=== PATIENT | female | born 1985 | race Caucasian/White ===

== ENCOUNTER 2016-10-19 18:21 | Emergency (ER) | payer MEDICAID ==
[2016-10-19 18:36] VITALS: BP 136/83
--- NOTE | 2016-10-19 18:57 | EDM.PDOC ---
ED HPI RENAL/ - General Chief Complaint: Genitourinary Problem Stated Complaint: POSSIBLE BLADDER INFECTION Time Seen by Provider: 10/19/16 18:50 Source: Reports: Patient History Limitations: Reports: No limitations - History of Present Illness INITIAL COMMENTS - FREE TEXT/NARRATIVE: 24 hr hx of decreased ability to urinate. States small amounts of urine produced with each void. Minimal pain. Low back pain, greater on left than right. No fever or chills. Last UTI was 'a few years ago.' No other concerns. Location: Reports: suprapubic Quality: Reports: ache Severity: mild Improves with: Reports: urinating Worsens with: Reports: urinating Context: Reports: other (recently completed menses. 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 - Past Surgical History HEENT Surgical History: Reports: Tonsillectomy Female Surgical History: Reports: section, Tubal ligation Social & Family History - Tobacco Use Smoking Status *Q: Never Smoker Second Hand Smoke Exposure: No - Recreational Drug Use Recreational Drug Use: No ED ROS GENERAL - Review of Systems Review Of Systems: See Below Constitutional: Reports: no symptoms GI/Abdominal: Reports: No symptoms : Reports: frequency, urgency, urinary retention Neurological: Reports: No Symptoms ED EXAM, RENAL/ - Physical Exam Exam: See Below Exam Limited By: No limitations General Appearance: alert, no apparent distress Respiratory/Chest: no respiratory distress Cardiovascular: regular rate, rhythm GI/Abdominal: soft (Female) Exam: Deferred Back Exam: other (low back pain to palpation). No: CVA tenderness (R), CVA tenderness (L) Extremities: normal range of motion Neurological: alert, oriented, normal cognition, normal gait Psychiatric: normal affect, normal mood Skin Exam: Warm, Dry Course - Vital Signs Last Recorded V/S: Last Vital Signs Temp 36.3 C 10/19/16 18:41 Pulse 90 10/19/16 18:41 Resp 14 10/19/16 18:41 BP 136/83 10/19/16 18:41 Pulse Ox 98 10/19/16 18:41 - Orders/Labs/Meds Orders: Active Orders 24 hr Category Date Time Status CULTURE URINE [RM] Stat Lab 10/19/16 19:00 Ordered Labs: Laboratory Tests 10/19/16 Range/Units 18:45 Urine Color Yellow Urine Appearance Cloudy Urine pH 6.0 (4.5-8.0) Ur Specific [place] 1.015 (1.008-1.030) Urine Protein 30 H (NEGATIVE) mg/dL Urine Glucose (UA) Normal (NEGATIVE) mg/dL Urine Ketones Negative (NEGATIVE) mg/dL Urine Occult Blood Large (NEGATIVE) Urine Nitrite Negative (NEGATIVE) Urine Bilirubin Negative (NEGATIVE) Urine Urobilinogen Normal (NORMAL) mg/dL Ur Leukocyte Esterase Moderate (NEGATIVE) Urine RBC 10-20 H (0-5) Urine WBC 50-75 H (0-5) Ur Epithelial Cells Few Urine Bacteria Many Urine Mucus Not seen Departure - Departure Time of Disposition: 19:02 Disposition: Home, Self-Care 01 Condition: good Clinical Impression: UTI, Urinary tract infectious disease Instructions: Urinary Tract Infection, Adult, [id number] Referrals: PCP,None [Primary Care Provider] - Forms: ED Department Discharge Additional Instructions: 1. Nitrofurantoin (antibiotic) 2 times per day for 7 days. 2. Increase your fluid intake, void often. 3. Followup as needed. - Problem List & Annotations (1) UTI, Urinary tract infectious disease SNOMED Code(s): 64747530 Code(s): N39.0 - URINARY TRACT INFECTION, SITE NOT SPECIFIED Status: Acute Current Visit: Yes - Problem List Review Problem List Initiated/Reviewed/Updated: Yes - My Orders Last 24 Hours: My Active Orders 10/19/16 19:00 CULTURE URINE [RM] Stat - Assessment/Plan Last 24 Hours: My Active Orders 10/19/16 19:00 CULTURE URINE [RM] Stat
== END 2016-10-19 19:12 | disposition home or self-care (01) ==
LOC: JP.ED 18:21
DX: N39.0 Urinary tract infection, site not specified (principal); Z79.899 Other long term (current) drug therapy
CPT/HCPCS: 81001; 87086; 87088; 87186; 99284

== ENCOUNTER 2016-12-22 22:07 | Emergency (ER) | payer MEDICAID ==
[2016-12-22] MEDS ORDERED: Sodium Chloride 0.9% 10 ML Syringe FLUSH PRN (23:11)
[2016-12-22] MEDS ORDERED: Ondansetron 4 MG/2 ML SDV IVPUSH ONE (23:12)
[2016-12-22] MEDS ORDERED: HYDROmorphone 1 MG/ML Syringe IVPUSH ONE (23:13)
[2016-12-22] MEDS ORDERED: Sodium Chloride 0.9% 80 ML IV STA (23:29)
[2016-12-22] MEDS ORDERED: Iopamidol 612 MG/ML 100 ML Bottle IV STA (23:29)
[2016-12-23] MEDS ORDERED: HYDROmorphone 1 MG/ML Syringe IVPUSH ONE (00:36)
[2016-12-23 00:37] VITALS: BP 113/61
[2016-12-23] MEDS ORDERED: Ondansetron 4 MG/2 ML SDV IVPUSH ONE (00:38)
--- NOTE | 2016-12-23 00:55 | EDM.PDOC ---
ED HPI GENERAL MEDICAL PROBLEM - General Chief Complaint: Trauma Stated Complaint: FELL HORSE - L SIDE PAIN Time Seen by Provider: 12/22/16 23:14 Source of Information: Reports: Patient History Limitations: Reports: No Limitations - History of Present Illness INITIAL COMMENTS - FREE TEXT/NARRATIVE: This lady was thrown off a horse a short while prior to arrival. She complains to pain to the left side of her chest and the left flank area. She describes the pain as severe. She got a little bump to the left side of her head in the area of the orbital rim and left frontoparietal area. She does not have any kind of neck pain. 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: Neurological History: Reports: Concussion, Migraines Hematologic History: Reports: None Immunologic History: Reports: None - Past Surgical History HEENT Surgical History: Reports: Tonsillectomy Female Surgical History: Reports: Section, Tubal Ligation Social & Family History - Tobacco Use Smoking Status *Q: Never Smoker Second Hand Smoke Exposure: No - Caffeine Use Caffeine Use: Reports: Coffee, Soda - Recreational Drug Use Recreational Drug Use: No Review of Systems - Review of Systems Review Of Systems: See Below Constitutional: Reports: No Symptoms Eyes: Reports: No Symptoms Ears: Reports: No Symptoms Nose: Reports: No Symptoms Mouth/Throat: Reports: No Symptoms Respiratory: Reports: No Symptoms, Other (Left-sided chest pain) Cardiovascular: Reports: No Symptoms GI/Abdominal: Reports: No Symptoms, Other Genitourinary: Reports: Hematuria, Other (Left flank pain) Musculoskeletal: Denies: Neck Pain Skin: Reports: No Symptoms ED EXAM, GENERAL - Physical Exam Exam: See Below Exam Limited By: No Limitations General Appearance: Alert, WD/WN, Moderate Distress Eye Exam: Bilateral Eye: Normal Inspection Ears: Normal External Exam Nose: Normal Inspection Throat/Mouth: Normal Inspection Head: Other (There is some very faint bruising to the lateral margin of the left orbital rim. That area slightly tender in the tenderness extends to the left frontoparietal area this is just a very mild injury.) Neck: Normal Inspection, Supple, Non-Tender, Full Range of Motion (Painless range of motion of the neck) Respiratory/Chest: Lungs Clear (She appears to have some splinting on the left side) Cardiovascular: Normal Peripheral Pulses, Regular Rate, Rhythm, No Murmur GI/Abdominal: Soft, Non-Tender Back Exam: CVA Tenderness (L) Extremities: Normal Inspection Neurological: Alert, Oriented Psychiatric: Normal Affect Skin Exam: Warm, Dry Course - Vital Signs Last Recorded V/S: Last Vital Signs Temp 37.0 C 12/23/16 00:35 Pulse 81 12/23/16 00:35 Resp 15 12/23/16 00:35 BP 113/61 12/23/16 00:35 Pulse Ox 96 12/23/16 00:35 - Orders/Labs/Meds Orders: Active Orders 24 hr Category Date Time Status Chest Abdomen Pelvis w Cont [CT] Stat Exams 12/22/16 23:11 Taken Sodium Chloride 0.9% [Saline Flush] Med 12/22/16 23:11 Active 10 ml FLUSH ASDIRECTED PRN Saline Lock Insert [OM.PC] Urgent Oth 12/22/16 23:11 Ordered Medication Orders Sodium Chloride (Saline Flush) 10 ml FLUSH ASDIRECTED PRN PRN Reason: Keep Vein Open Last Admin: 12/22/16 23:31 Dose: 10 ml Labs: Laboratory Tests 12/22/16 12/22/16 12/22/16 Range/Units 23:20 23:25 23:25 WBC 14.4 H (4.5-11.0) K/uL RBC 4.43 (3.30-5.50) M/uL Hgb 12.3 (12.0-15.0) g/dL Hct 36.2 (36.0-48.0) % MCV 82 (80-98) fL MCH 28 (27-31) pg MCHC 34 (32-36) % Plt Count 235 (150-400) K/uL Neut % (Auto) 77 H (36-66) % Lymph % (Auto) 13 L (24-44) % [place] % (Auto) 9 H (2-6) % Eos % (Auto) 0 L (2-4) % Baso % (Auto) 0 (0-1) % Sodium 136 L (140-148) mmol/L Potassium 3.8 (3.6-5.2) mmol/L Chloride 102 (100-108) mmol/L Carbon Dioxide 26 (21-32) mmol/L Anion Gap 11.8 (5.0-14.0) mmol/L BUN 12 (7-18) mg/dL Creatinine 1.1 H (0.6-1.0) mg/dL Est Cr Clr Drug Dosing 72.06 mL/min Estimated GFR (MDRD) 58 L (>60) Glucose 122 H (74-106) mg/dL Calcium 8.8 (8.5-10.1) mg/dL Total Bilirubin 0.2 (0.2-1.0) mg/dL AST 57 H D (15-37) U/L ALT 40 D (12-78) U/L Alkaline Phosphatase 70 (46-116) U/L Total Protein 7.2 (6.4-8.2) g/dL Albumin 3.7 (3.4-5.0) g/dL Globulin 3.5 (2.3-3.5) g/dL Albumin/Globulin Ratio 1.1 L (1.2-2.2) Urine Color Brown Urine Appearance Cloudy Urine pH 5.0 (4.5-8.0) Ur Specific [place] 1.020 (1.008-1.030) Urine Protein 100 H (NEGATIVE) mg/dL Urine Glucose (UA) 50 H (NEGATIVE) mg/dL Urine Ketones Negative (NEGATIVE) mg/dL Urine Occult Blood Large (NEGATIVE) Urine Nitrite Negative (NEGATIVE) Urine Bilirubin Negative (NEGATIVE) Urine Urobilinogen Normal (NORMAL) mg/dL Ur Leukocyte Esterase Negative (NEGATIVE) Urine RBC Semi-packed H (0-5) Urine WBC 5-10 H (0-5) Ur Epithelial Cells Few Amorphous Sediment Not seen Urine Bacteria Moderate Urine Mucus Not seen Meds: Medications Generic Name Dose Route Start Last Admin Trade Name Freq PRN Reason Stop Dose Admin Sodium Chloride 10 ml 12/22/16 23:11 12/22/16 23:31 Saline Flush FLUSH 10 ml ASDIRECTED PRN Administration Keep Vein Open Discontinued Medications Generic Name Dose Route Start Last Admin Trade Name Freq PRN Reason Stop Dose Admin Hydromorphone HCl 1 mg 12/22/16 23:13 12/22/16 23:35 Dilaudid IVPUSH 12/22/16 23:14 1 mg ONETIME ONE Administration Hydromorphone HCl 1 mg 12/23/16 00:36 12/23/16 00:45 Dilaudid IVPUSH 12/23/16 00:37 1 mg ONETIME ONE Administration Sodium Chloride 80 mls @ 3 mls/sec 12/22/16 23:29 12/22/16 23:43 Normal Saline IV 12/22/16 23:30 3 mls/sec ASDIRECTED STA Administration Iopamidol 100 ml 12/22/16 23:29 12/22/16 23:43 Isovue-300 (61%) IV 12/22/16 23:30 100 ml . DIRECTED STA Administration Ondansetron HCl 4 mg 12/22/16 23:12 12/22/16 23:32 Zofran IVPUSH 12/22/16 23:13 4 mg ONETIME ONE Administration Ondansetron HCl 4 mg 12/23/16 00:38 12/23/16 00:45 Zofran IVPUSH 12/23/16 00:39 4 mg ONETIME ONE Administration - Radiology Interpretation Free Text/Narrative:: CT of the chest abdomen and pelvis showed an acute injury to the left kidney with perinephric fluid a linear laceration involving the anterior medial left renal cortex extending to the medullary region renal vein left renal artery are patent this is considered a grade 2 injury no high density focus to indicate acute hemorrhage apparently the perinephric fluid is extravasated urine. Rest of the chest abdomen and pelvis was all normal. - Re-Assessments/Exams Free Text/Narrative Re-Assessment/Exam: 12/23/16 00:54 An IV was established she was given Dilaudid 1 mg IV. When she returned from CT she was continued to have pain since she was given an additional 1 mg Dilaudid and 4 of Zofran. I spoke with at [facility] in [place] and he has accepted the patient and she will be seen in the emergency department. She'll be transported by ambulance. She is hemodynamically stable. Departure - Departure Time of Disposition: 00:56 Disposition: DC/Tfer to Acute Hospital 02 Condition: Serious Clinical Impression: Major laceration of left kidney - Discharge Information Forms: ED Department Discharge - My Orders Last 24 Hours: My Active Orders 12/22/16 23:11 Chest Abdomen Pelvis w Cont [CT] Stat Sodium Chloride 0.9% [Saline Flush] 10 ml FLUSH ASDIRECTED PRN Saline Lock Insert [OM.PC] Urgent - Assessment/Plan Last 24 Hours: My Active Orders 12/22/16 23:11 Chest Abdomen Pelvis w Cont [CT] Stat Sodium Chloride 0.9% [Saline Flush] 10 ml FLUSH ASDIRECTED PRN Saline Lock Insert [OM.PC] Urgent
== END 2016-12-23 01:08 ==
LOC: JP.ED 22:07
DX: S37.032A Laceration of left kidney, unspecified degree, initial encounter (principal); G43.909 Migraine, unspecified, not intractable, without status migrainosus; Z88.0 Allergy status to penicillin; Z98.890 Other specified postprocedural states; Z98.51 Tubal ligation status; V80.010A Animal-rider injured by fall from or being thrown from horse in noncollision accident, initial encounter
CPT/HCPCS: 36415; 71260; 74177; 80053; 81001; 85025; 96374; 96375; 96376; 99285; J1170; J2405; J7030; J7050; Q9967

== ENCOUNTER 2017-09-23 20:36 | Emergency (ER) | payer MEDICAID ==
[2017-09-23 21:47] VITALS: BP 136/88
[2017-09-23] MEDS ORDERED: Ketorolac 60 MG/2 ML SDV IM ONE (22:20)
--- NOTE | 2017-09-23 22:26 | EDM.PDOC ---
ED HPI GENERAL MEDICAL PROBLEM - General Chief Complaint: General Stated Complaint: ILLNESS Time Seen by Provider: 09/23/17 22:10 Source of Information: Reports: Patient, Old Records, RN History Limitations: Reports: No Limitations - History of Present Illness INITIAL COMMENTS - FREE TEXT/NARRATIVE: 32 yo female was seen in the clinic 2 days ago for fever, joint pains, a rash, and a CAMARILLO. The fever seems to have recently resolved. No tests were done in the clinic. Laura is concerned that something was missed in the clinic. No joint swelling, but pain moves around to different joints. Her tongue feels funny. Tingling of her hands and feet at times. Still has a "migraine". No nausea, diarrhea or dysuria. No sore throat. Has dogs that go outside and then come inside. Onset: Gradual Onset Date: 09/20/17 Duration: Day(s):, Waxing/Waning Location: Reports: Generalized Quality: Reports: Ache (joints, varying) Severity: Mild Improves with: Reports: None Worsens with: Reports: None Context: Reports: Other (recent febrile illness) Associated Symptoms: Reports: Fever/Chills, Headaches, Rash. 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: Neurological History: Reports: Concussion, Migraines Hematologic History: Reports: None Immunologic History: Reports: None - Past Surgical History HEENT Surgical History: Reports: Adenoidectomy, Tonsillectomy Female Surgical History: Reports: Section, Tubal Ligation Social & Family History - Tobacco Use Smoking Status *Q: Never Smoker Second Hand Smoke Exposure: No - Caffeine Use Caffeine Use: Reports: Soda - Recreational Drug Use Recreational Drug Use: No ED ROS GENERAL - Review of Systems Review Of Systems: See Below Constitutional: Reports: Fever HEENT: Reports: Other (tongue feels funny) Respiratory: Reports: No Symptoms Cardiovascular: Reports: No Symptoms Endocrine: Reports: No Symptoms GI/Abdominal: Reports: No Symptoms : Reports: No Symptoms Musculoskeletal: Reports: Joint Pain (migratory, no redness or swelling.) Skin: Reports: Rash (faint red) Neurological: Reports: Tingling (hands and feet intermittently) Psychiatric: Reports: No Symptoms ED EXAM, GENERAL - Physical Exam Exam: See Below Exam Limited By: No Limitations General Appearance: Alert, WD/WN, No Apparent Distress Eye Exam: Bilateral Eye: Normal Inspection Ears: Normal External Exam, Normal Canal, Hearing Grossly Normal, Normal TMs Ear Exam: Bilateral Ear: Auricle Normal, Canal Normal, TM normal Nose: Normal Inspection, Normal Mucosa, No Blood Throat/Mouth: Normal Inspection, Normal Lips, Normal Oropharynx, Normal Voice, No Airway Compromise, Other (Tongue looks a little more red than normal, no coating on surface of tongue. ) Head: Atraumatic, Normocephalic Neck: Normal Inspection, Supple, Non-Tender Respiratory/Chest: No Respiratory Distress, Lungs Clear, Normal Breath Sounds, No Accessory Muscle Use Cardiovascular: Regular Rate, Rhythm, No Edema GI/Abdominal: Normal Bowel Sounds, Soft, Non-Tender, No Distention Back Exam: Normal Inspection. No: CVA Tenderness (R), CVA Tenderness (L) Extremities: Normal Inspection, Normal Range of Motion, Non-Tender, No Pedal Edema Neurological: Alert, Oriented, CN II-XII Intact, Normal Cognition, No Motor/ Sensory Deficits Psychiatric: Normal Affect, Normal Mood Skin Exam: Warm, Dry, Intact, Normal Color, Rash (fine red rash on extrems.) Lymphatic: No Adenopathy Course - Vital Signs Last Recorded V/S: Last Vital Signs Temp 36.2 C 09/23/17 21:44 Pulse 98 09/23/17 21:44 Resp 18 09/23/17 21:44 BP 136/88 09/23/17 21:44 Pulse Ox 97 09/23/17 21:44 Orthostatic Blood Pressure [ 129/92 Standing] Orthostatic Blood Pressure [ 129/85 Sitting] Orthostatic Blood Pressure [ 127/83 Supine] - Orders/Labs/Meds Orders: Active Orders 24 hr Category Date Time Status Orthostatic Vital Signs [RC] ASDIRECTED Care 09/23/17 21:53 Active HEPATITIS C ANTIBODY [REF] Stat Lab 09/23/17 23:12 Ordered Labs: Laboratory Tests 09/23/17 09/23/17 Range/Units 22:22 22:22 WBC 7.0 (4.5-11.0) K/uL RBC 4.45 (3.30-5.50) M/uL Hgb 12.3 (12.0-15.0) g/dL Hct 37.7 (36.0-48.0) % MCV 85 (80-98) fL MCH 28 (27-31) pg MCHC 33 (32-36) % Plt Count 240 (150-400) K/uL AST 98 H (15-37) U/L Meds: Medications Discontinued Medications Generic Name Dose Route Start Last Admin Trade Name Freq PRN Reason Stop Dose Admin Ketorolac Tromethamine 60 mg 09/23/17 22:20 09/23/17 22:30 Toradol IM 09/23/17 22:21 60 mg ONETIME ONE Administration Departure - Departure Time of Disposition: 23:13 Disposition: Home, Self-Care 01 Condition: Fair Clinical Impression: Elevated AST (SGOT) Arthralgia Qualifiers: Joint pain location: unspecified Qualified Code(s): M25.50 - Pain in unspecified joint - Discharge Information Referrals: PCP,None [Primary Care Provider] - Forms: ED Department Discharge - My Orders Last 24 Hours: My Active Orders 09/23/17 21:53 Orthostatic Vital Signs [RC] ASDIRECTED 09/23/17 23:12 HEPATITIS C ANTIBODY [REF] Stat - Assessment/Plan Last 24 Hours: My Active Orders 09/23/17 21:53 Orthostatic Vital Signs [RC] ASDIRECTED 09/23/17 23:12 HEPATITIS C ANTIBODY [REF] Stat
== END 2017-09-23 23:21 | disposition home or self-care (01) ==
LOC: JP.ED 20:36
DX: R74.0 Nonspecific elevation of levels of transaminase and lactic acid dehydrogenase [LDH] (principal); M25.50 Pain in unspecified joint; Z88.6 Allergy status to analgesic agent
CPT/HCPCS: 36415; 84450; 85027; 86803; 96372; 99284; J1885